=== PATIENT | male | born 1965 | race Caucasian/White ===

== ENCOUNTER 2018-03-09 14:08 | Inpatient (IN) | payer MEDICARE ==
[~2018-03-09] VITALS: Ht 165.1 cm; Wt 78.5 kg
[~2018-03-09 14:08] MED LIST: HALOD100I IM
[2018-03-09] MEDS ORDERED: HALOPERIDOL 5 MG TABLET PO PRN (15:15)
[2018-03-09 15:43] VITALS: BP 158/87
[2018-03-09 16:15] VITALS: BP 160/92
[2018-03-09] MEDS: LORazepam 2 MG TABLET PO PRN (16:56)
[2018-03-09 18:29] VITALS: BP 149/67
[2018-03-09 20:20] VITALS: BP 146/75
[2018-03-10] VITALS (7 sets, daily range): BP systolic 118–157; BP diastolic 70–89
[2018-03-10 07:56] LABS: BASOPHILS % (AUTO) 0.4 % (0.0-2.0); EOSINOPHILS % (AUTO) 0.2 % (1.0-6.0); HEMATOCRIT 46.2 % (41-53); HEMOGLOBIN 15.8 g/dL (13.5-17.5); LYMPHOCYTES # (AUTO) 1.7 K/uL (1.0-4.8); LYMPHOCYTES % (AUTO) 15.5 % (22.0-44.0); MEAN CORPUSCULAR HEMOGLOBIN 30.1 pg (26.0-34.0); MEAN CORPUSCULAR HGB CONC 34.3 G/dL (31.0-37.0); MEAN CORPUSCULAR VOLUME 88 fL (80-100); MONOCYTES # (AUTO) 0.9 K/uL (0.1-1.0); MONOCYTES % (AUTO) 8.2 % (2.0-9.0); NEUTROPHILS # (AUTO) 8.3 K/uL (1.8-7.7); NEUTROPHILS % (AUTO) 75.7 % (40.0-70.0); PLATELET COUNT (AUTO) 273 K/uL (150-450); RED BLOOD CELL COUNT(AUTO) 5.25 MIL/uL (4.50-5.90); RED CELL DISTRIBUTION WIDTH 14.2 % (11.5-14.5)
[2018-03-10 08:25] LABS: HEMOGLOBIN A1C 5.6 % (4.5-6.2)
[2018-03-10] MEDS: LORazepam 2 MG TABLET PO PRN ×2 (08:27→19:34)
[2018-03-10 08:44] LABS: ALANINE AMINOTRANSFERASE 37 U/L (12-78); ALBUMIN 4.6 g/dL (3.4-5.0); ALKALINE PHOSPHATASE 95 U/L (46-116); ANION GAP 7 mmol/L (8-16); ASPARTATE AMINOTRANSFERASE 15 U/L (15-37); BILIRUBIN,TOTAL 0.9 mg/dL (0.1-1.0); CALCIUM, TOTAL 9.2 mg/dL (8.8-10.5); CARBON DIOXIDE 31 mmol/L (22-29); CHLORIDE 106 mmol/L (98-107); CHOL/HDL RATIO 2.6 (4.2-7.3); CHOLESTEROL 145 mg/dL (131-200); CREATININE 0.86 mg/dL (0.60-1.30); FREE T4 (FREE THYROXINE) 1.06 ng/dL (0.76-1.46); GLOMERULAR FILTR. RATE CALC > 60 mL/min (>60); GLUCOSE,RANDOM 106 mg/dL (70-110); HDL CHOLESTEROL 55 mg/dL (40-60); LDL CHOL (CALC.) 82 mg/dL (0-130); POTASSIUM 4.1 mmol/L (3.5-5.1); SODIUM SERUM 144 mmol/L (136-145); THYROID STIMULATING HORMONE 3.23 uIU/mL (0.36-3.74); TRIGLYCERIDES 42 mg/dL (15-150); UREA NITROGEN, BLOOD 16 mg/dL (7-18)
[2018-03-10] MEDS: HALOPERIDOL LACTATE 10 MG/5 ML SOLUTION UDCUP PO SCH ×2 (11:00→20:28)
[2018-03-11] MEDS: ZOLPIDEM TARTRATE 10 MG TABLET PO PRN (01:06)
[2018-03-11 02:12] VITALS: BP 119/77
[2018-03-11 08:04] VITALS: BP 119/81
[2018-03-11] MEDS: HALOPERIDOL LACTATE 10 MG/5 ML SOLUTION UDCUP PO SCH ×2 (08:13→20:34)
[2018-03-11 16:11] VITALS: BP 128/84
[2018-03-12 03:08] VITALS: BP 137/80
[2018-03-12] MEDS: HALOPERIDOL LACTATE 10 MG/5 ML SOLUTION UDCUP PO SCH ×2 (08:14→20:38)
[2018-03-12 08:47] VITALS: BP 120/88
[2018-03-12 16:08] VITALS: BP 122/75
[2018-03-12] MEDS: LORazepam 2 MG TABLET PO PRN (17:40)
[2018-03-13 01:14] VITALS: BP 125/81
[2018-03-13] MEDS: HALOPERIDOL LACTATE 10 MG/5 ML SOLUTION UDCUP PO SCH ×2 (08:21→20:35)
[2018-03-13 08:30] VITALS: BP 125/77
[2018-03-13 16:10] VITALS: BP 125/70
[2018-03-13] MEDS: ZOLPIDEM TARTRATE 10 MG TABLET PO PRN (22:12)
[2018-03-14 02:40] VITALS: BP 132/86
[2018-03-14 08:20] VITALS: BP 146/78
[2018-03-14] MEDS: HALOPERIDOL LACTATE 10 MG/5 ML SOLUTION UDCUP PO SCH ×2 (08:25→20:06)
[2018-03-14 16:08] VITALS: BP 128/75
[2018-03-15 01:45] VITALS: BP 138/80
[2018-03-15] MEDS: HALOPERIDOL LACTATE 10 MG/5 ML SOLUTION UDCUP PO SCH ×2 (08:05→20:32)
[2018-03-15 08:24] VITALS: BP 147/74
[2018-03-15 16:10] VITALS: BP 137/86
[2018-03-16 02:45] VITALS: BP 129/77
[2018-03-16 08:24] VITALS: BP 124/84
[2018-03-16] MEDS: HALOPERIDOL LACTATE 10 MG/5 ML SOLUTION UDCUP PO SCH ×2 (08:34→20:22)
[2018-03-16 16:13] VITALS: BP 140/77
[2018-03-17 00:24] VITALS: BP 139/68
[2018-03-17 08:12] VITALS: BP 123/66
[2018-03-17] MEDS: HALOPERIDOL LACTATE 10 MG/5 ML SOLUTION UDCUP PO SCH ×2 (08:13→20:38)
[2018-03-17 16:05] VITALS: BP 139/77
[2018-03-17] MEDS: ZOLPIDEM TARTRATE 10 MG TABLET PO PRN (21:10)
[2018-03-18 00:17] VITALS: BP 125/63
[2018-03-18] MEDS: HALOPERIDOL LACTATE 10 MG/5 ML SOLUTION UDCUP PO SCH ×2 (08:01→20:43)
[2018-03-18] MEDS: LORazepam 2 MG TABLET PO PRN ×2 (08:29→21:45)
[2018-03-18 08:35] VITALS: BP 123/73
[2018-03-18] MEDS ORDERED: HALOPERIDOL DECANOATE 100 MG/ML VIAL IM ONE (11:15)
[2018-03-18 16:06] VITALS: BP 120/61
[2018-03-19 08:06] VITALS: BP 121/74
[2018-03-19] MEDS: HALOPERIDOL LACTATE 10 MG/5 ML SOLUTION UDCUP PO SCH ×2 (08:06→20:27)
[2018-03-19 16:07] VITALS: BP 118/70
[2018-03-19] MEDS: ZOLPIDEM TARTRATE 10 MG TABLET PO PRN (20:59)
[2018-03-20 02:56] VITALS: BP 121/73
[2018-03-20] MEDS: HALOPERIDOL LACTATE 10 MG/5 ML SOLUTION UDCUP PO SCH ×2 (08:12→20:33)
[2018-03-20 08:16] VITALS: BP 123/74
[2018-03-20 16:12] VITALS: BP 122/77
[2018-03-20] MEDS: ZOLPIDEM TARTRATE 10 MG TABLET PO PRN (21:02)
[2018-03-21 04:19] VITALS: BP 125/81
[2018-03-21] MEDS: HALOPERIDOL LACTATE 10 MG/5 ML SOLUTION UDCUP PO SCH ×2 (08:14→20:31)
[2018-03-21 08:16] VITALS: BP 125/80
[2018-03-21 16:07] VITALS: BP 135/74
[2018-03-21] MEDS: ZOLPIDEM TARTRATE 10 MG TABLET PO PRN (21:12)
[2018-03-22 02:47] VITALS: BP 133/80
[2018-03-22] MEDS: HALOPERIDOL LACTATE 10 MG/5 ML SOLUTION UDCUP PO SCH (08:05)
[2018-03-22 08:33] VITALS: BP 137/89
[2018-03-22] MEDS ORDERED: HALOPERIDOL DECANOATE 100 MG/ML VIAL IM ONE (09:00)
[2018-03-22] MEDS ORDERED: HALO5L PO (09:39)
[2018-04-19] MEDS ORDERED: HALOPERIDOL DECANOATE 100 MG/ML VIAL IM SCH (09:00)
== END 2018-03-22 10:20 | disposition home or self-care (01) | DRG 885 ==
LOC: B2X 15:09
DX: F20.0 Paranoid schizophrenia (principal); R62.50 Unspecified lack of expected normal physiological development in childhood; R03.0 Elevated blood-pressure reading, without diagnosis of hypertension; G47.00 Insomnia, unspecified; Z82.49 Family history of ischemic heart disease and other diseases of the circulatory system; Z83.3 Family history of diabetes mellitus; Z91.19 Patient's noncompliance with other medical treatment and regimen; Z79.899 Other long term (current) drug therapy
CPT/HCPCS: 83036; 84439; 84443; J1631

== ENCOUNTER 2018-07-28 21:58 | Emergency (ER) | payer MEDICARE, MEDICAID, SELFPAY ==
[~2018-07-28] VITALS: Ht 165.1 cm; Wt 77.3 kg
[~2018-07-28 21:58] MED LIST changes: +HALO5L PO
[2018-07-28] MEDS ORDERED: TRAZ-219 PO (22:05)
[2018-07-28 23:10] LABS: BASOPHILS % (AUTO) 0.7 % (0.0-2.0); EOSINOPHILS % (AUTO) 1.7 % (1.0-6.0); HEMATOCRIT 43.9 % (41-53); HEMOGLOBIN 15.2 g/dL (13.5-17.5); LYMPHOCYTES # (AUTO) 2.1 K/uL (1.0-4.8); LYMPHOCYTES % (AUTO) 21.1 % (22.0-44.0); MEAN CORPUSCULAR HEMOGLOBIN 30.7 pg (26.0-34.0); MEAN CORPUSCULAR HGB CONC 34.5 G/dL (31.0-37.0); MEAN CORPUSCULAR VOLUME 89 fL (80-100); MONOCYTES % (AUTO) 9.8 % (2.0-9.0); NEUTROPHILS # (AUTO) 6.6 K/uL (1.8-7.7); NEUTROPHILS % (AUTO) 66.7 % (40.0-70.0); PLATELET COUNT (AUTO) 257 K/uL (150-450); RED BLOOD CELL COUNT(AUTO) 4.93 MIL/uL (4.50-5.90); RED CELL DISTRIBUTION WIDTH 13.7 % (11.5-14.5)
[2018-07-28 23:19] LABS: AMPHET/METH SCREEN,URINE NEGATIVE (NEGATIVE); BARBITURATE SCREEN, URINE NEGATIVE (NEGATIVE); BENZODIAZEPINES SCREEN,URINE NEGATIVE (NEGATIVE); CANNABINOID SCREEN,URINE NEGATIVE (NEGATIVE); COCAINE SCREEN,URINE NEGATIVE (NEGATIVE); METHADONE SCREEN, URINE NEGATIVE (NEGATIVE); OPIATE SCREEN,URINE NEGATIVE (NEGATIVE)
[2018-07-28 23:19] LABS: ANION GAP 6 mmol/L (8-16); CALCIUM, TOTAL 8.9 mg/dL (8.8-10.5); CARBON DIOXIDE 32 mmol/L (22-29); CHLORIDE 102 mmol/L (98-107); CREATININE 0.83 mg/dL (0.60-1.30); GLOMERULAR FILTR. RATE CALC > 60 mL/min (>60); GLUCOSE,RANDOM 120 mg/dL (70-110); POTASSIUM 3.9 mmol/L (3.5-5.1); SODIUM SERUM 140 mmol/L (136-145); UREA NITROGEN, BLOOD 17 mg/dL (7-18)
[2018-07-28 23:20] LABS: PHENCYCLIDINE SCREEN,URINE NEGATIVE (NEGATIVE)
[2018-07-28 23:25] LABS: ALANINE AMINOTRANSFERASE 37 U/L (12-78); ALBUMIN 4.1 g/dL (3.4-5.0); ALKALINE PHOSPHATASE 102 U/L (46-116); ASPARTATE AMINOTRANSFERASE 16 U/L (15-37); BILIRUBIN,TOTAL 0.6 mg/dL (0.1-1.0); TOTAL PROTEIN, SERUM 7.5 g/dL (6.4-8.2)
[2018-07-28] MEDS ORDERED: LORazepam 2 MG TABLET PO ONE (23:45)
[2018-07-29 00:26] VITALS: BP 144/85
== END 2018-07-29 00:28 | disposition home or self-care (01) ==
LOC: EMS 21:59
DX: F20.0 Paranoid schizophrenia (principal); G47.00 Insomnia, unspecified
CPT/HCPCS: 36415; 80053; 80307; 85025; 99284; G0480

== ENCOUNTER 2020-04-15 15:35 | Emergency (ER) | payer MEDICARE, MEDICAID ==
[~2020-04-15] VITALS: Ht 165.1 cm; Wt 90.0 kg
[~2020-04-15 15:35] MED LIST changes: -HALO5L PO; +TRAZ-252 PO
[2020-04-15] MEDS ORDERED: AMLO2.5T96 PO (15:53)
[2020-04-15] MEDS ORDERED: HALO50VI4 IM (15:53)
[2020-04-15] MEDS ORDERED: LISI-660 PO (15:53)
[2020-04-15 16:15] VITALS: BP 147/78
[2020-04-15 16:27] LABS: BASOPHILS % (AUTO) 0.4 % (0.0-2.0); EOSINOPHILS % (AUTO) 1.9 % (1.0-6.0); HEMATOCRIT 42.5 % (41-53); HEMOGLOBIN 14.2 g/dL (13.5-17.5); LYMPHOCYTES # (AUTO) 1.5 K/uL (1.0-4.8); LYMPHOCYTES % (AUTO) 20.4 % (22.0-44.0); MEAN CORPUSCULAR HEMOGLOBIN 29.5 pg (26.0-34.0); MEAN CORPUSCULAR HGB CONC 33.3 G/dL (31.0-37.0); MEAN CORPUSCULAR VOLUME 89 fL (80-100); MONOCYTES # (AUTO) 0.9 K/uL (0.1-1.0); MONOCYTES % (AUTO) 11.8 % (2.0-9.0); NEUTROPHILS # (AUTO) 4.9 K/uL (1.8-7.7); NEUTROPHILS % (AUTO) 65.5 % (40.0-70.0); PLATELET COUNT (AUTO) 243 K/uL (150-450); RED CELL DISTRIBUTION WIDTH 13.3 % (11.5-14.5)
[2020-04-15] MEDS ORDERED: ACETAMINOPHEN 500 MG TABLET PO ONE (16:30)
[2020-04-15] MEDS ORDERED: MAG HYDROX/AL HYDROX/SIMETH ES 30 ML SUSPENSION UDCUP PO ONE (16:30)
[2020-04-15] MEDS ORDERED: LISI-662 PO (16:33)
[2020-04-15] MEDS ORDERED: AMLO-257 PO (16:33)
[2020-04-15] MEDS ORDERED: TRAZ-257 PO (16:33)
[2020-04-15 16:34] LABS: ANION GAP 5 mmol/L (8-16); CALCIUM, TOTAL 9.3 mg/dL (8.8-10.5); CARBON DIOXIDE 28 mmol/L (22-29); CHLORIDE 103 mmol/L (98-107); CREATININE 1.06 mg/dL (0.60-1.30); GLOMERULAR FILTR. RATE CALC > 60 mL/min (>60); GLUCOSE,RANDOM 158 mg/dL (70-110); POTASSIUM 3.6 mmol/L (3.5-5.1); SODIUM SERUM 136 mmol/L (136-145); UREA NITROGEN, BLOOD 12 mg/dL (7-18)
[2020-04-15 16:39] LABS: ALANINE AMINOTRANSFERASE 29 U/L (12-78); ALBUMIN 4.2 g/dL (3.4-5.0); ALKALINE PHOSPHATASE 81 U/L (46-116); ASPARTATE AMINOTRANSFERASE 14 U/L (15-37); BILIRUBIN,TOTAL 0.4 mg/dL (0.1-1.0); LIPASE 134 U/L (73-393); TOTAL PROTEIN, SERUM 7.8 g/dL (6.4-8.2)
== END 2020-04-15 17:00 | disposition home or self-care (01) ==
LOC: EMS 15:35
DX: R00.2 Palpitations (principal); G47.00 Insomnia, unspecified; F20.9 Schizophrenia, unspecified; F41.9 Anxiety disorder, unspecified; I10 Essential (primary) hypertension; Z79.899 Other long term (current) drug therapy
CPT/HCPCS: 36415; 80053; 83690; 84484; 85025; 93005; 99284; G0480

== ENCOUNTER → 2021-01-16 | Outpatient (CLI) | payer MEDICARE, MEDICAID ==
[~2021-01-16] MED LIST changes: +AMLO-257 PO; +HALO50VI4 IM; -HALOD100I IM; +LISI-894 PO; -TRAZ-252 PO; +TRAZ-257 PO
== END | disposition home or self-care (01) ==
LOC: RADPV 09:25
PROVIDERS: ATTEND Internal Medicine Cardiovascular Disease
DX: I07.1 Rheumatic tricuspid insufficiency (principal); I10 Essential (primary) hypertension; I49.9 Cardiac arrhythmia, unspecified
CPT/HCPCS: 93306

== ENCOUNTER 2025-08-25 12:34 | Inpatient (IN) | payer MEDICARE, MEDICAID ==
[~2025-08-25] VITALS: Ht 165.1 cm; Wt 77.1 kg
[~2025-08-25 12:34] MED LIST changes: +HALO50VI29 IM; -HALO50VI4 IM
[2025-08-25 14:25] VITALS: BP 135/66; PULSE 85; RESP 19; TEMP 97.4; O2SAT 98
[2025-08-25 15:06] LABS: GLUCOMETER DEV NAME(LOC) POC.BV; POC SARS-COV2 AG, FIA NEGATIVE (NEGATIVE)
[2025-08-25 20:12] VITALS: BP 126/88; PULSE 89; RESP 18; TEMP 97.7; O2SAT 99
[2025-08-25] MEDS: TraZODone HCL 150 MG TABLET PO SCH (21:32)
[2025-08-26] MEDS ORDERED: MAGNESIUM HYDROXIDE SUSPENSION 30 ML UDCUP PO PRN (08:00)
[2025-08-26] MEDS ORDERED: IBUPROFEN 600 MG TABLET PO PRN (08:00)
[2025-08-26] MEDS ORDERED: DOCUSATE SODIUM 100 MG CAPSULE PO PRN (08:00)
[2025-08-26] MEDS ORDERED: MAG HYDROX/ALUMINUM HYD/SIMETH ES 30 ML SUSPENSION UDCUP PO PRN (08:00)
[2025-08-26] MEDS ORDERED: BENZOCAINE/MENTHOL [CEPACOL] LOZENGE PO PRN (08:00)
[2025-08-26] MEDS ORDERED: ONDANSETRON 4 MG TABLET PO PRN (08:00)
[2025-08-26] MEDS ORDERED: BACITRACIN 28 GM OINTMENT TP PRN (08:00)
[2025-08-26] MEDS ORDERED: OMEPRAZOLE 20 MG CAPSULE PO PRN (08:00)
[2025-08-26] MEDS ORDERED: LOPERAMIDE HCL 2 MG CAPSULE PO PRN (08:00)
[2025-08-26] MEDS ORDERED: PETROLATUM,WHITE 28 GM JELLY TP PRN (08:00)
[2025-08-26] MEDS ORDERED: ALBUTEROL SULFATE HFA 90 MCG/PUFF 8 GM INHALER IH PRN (08:00)
[2025-08-26 08:13] VITALS: BP 121/71; PULSE 79; RESP 18; TEMP 98.1; O2SAT 98
[2025-08-26 09:05] LABS: PLATELET COUNT (AUTO) 263 K/uL (150-450); RED BLOOD CELL COUNT(AUTO) 4.57 MIL/uL (4.50-5.90); RED CELL DISTRIBUTION WIDTH 13.3 % (11.5-14.5); WHITE BLOOD COUNT (AUTO) 5.7 K/uL (4.5-11.0)
[2025-08-26 09:23] LABS: CALCIUM, TOTAL 8.9 mg/dL (8.8-10.5); CREATININE 0.97 mg/dL (0.60-1.30); GLOMERULAR FILTR. RATE CALC > 60 mL/min (>60); GLUCOSE,RANDOM 181 mg/dL (70-110); SODIUM SERUM 136 mmol/L (136-145); UREA NITROGEN, BLOOD 12 mg/dL (7-18)
[2025-08-26 09:25] LABS: ALCOHOL, BLOOD (SERUM) < 3 mg/dL (0-10)
[2025-08-26 09:48] LABS: ASPARTATE AMINOTRANSFERASE 22 U/L (15-37); CHOL/HDL RATIO 2.1 (4.2-7.3); LDL CHOL (CALC.) 58 mg/dL (0-130); TOTAL PROTEIN, SERUM 7.0 g/dL (6.4-8.2)
[2025-08-26 21:44] VITALS: BP 101/61; PULSE 84; RESP 18; TEMP 98; O2SAT 98
[2025-08-27 08:12] VITALS: BP 134/80; PULSE 77; RESP 18; TEMP 98.1; O2SAT 96
[2025-08-27 19:53] VITALS: BP 104/54; PULSE 79; RESP 17; TEMP 98.3; O2SAT 98
[2025-08-28 08:37] VITALS: BP 149/67; PULSE 73; RESP 18; TEMP 98.3; O2SAT 98
[2025-08-28 12:50] LABS: APPEARANCE,URINE CLEAR (CLEAR); GLUCOSE, URINE (UA) NEGATIVE (NEGATIVE); LEUKOCYTE ESTERASE ,URINE NEGATIVE (NEGATIVE); NITRATE,URINE NEGATIVE (NEGATIVE); OCCULT BLOOD,URINE NEGATIVE (NEGATIVE); PH,URINE DRUG SCREEN 6.5 (5.0-8.0); SPECIFIC GRAVITIY, URINE 1.005 (1.003-1.030)
[2025-08-28 13:04] LABS: AMPHET/METH SCREEN,URINE NEGATIVE (NEGATIVE); BARBITURATE SCREEN, URINE NEGATIVE (NEGATIVE); CANNABINOID SCREEN,URINE NEGATIVE (NEGATIVE); COCAINE SCREEN,URINE NEGATIVE (NEGATIVE); METHADONE SCREEN, URINE NEGATIVE (NEGATIVE)
[2025-08-28 13:05] LABS: ALCOHOL, URINE DRUG SCREEN NEGATIVE (NEGATIVE)
[2025-08-28 15:10] VITALS: BP 119/66; PULSE 78; RESP 18; TEMP 98.1; O2SAT 99
[2025-08-28] MEDS: ACETAMINOPHEN 325 MG TABLET PO PRN (15:14)
[2025-08-28 20:12] VITALS: BP 112/62; PULSE 72; RESP 18; TEMP 99; O2SAT 100
[2025-08-28 23:07] LABS: HEPATITIS C AB (EIA) Non Reactive (Non Reactive)
[2025-08-29 05:11] VITALS: BP 124/67; PULSE 74; RESP 18; O2SAT 100
[2025-08-29 08:28] VITALS: BP 134/84; PULSE 82; RESP 18; TEMP 98.3; O2SAT 97
[2025-08-29 20:12] VITALS: BP 109/56; PULSE 81; RESP 17; TEMP 97.6; O2SAT 98
[2025-08-30 08:32] VITALS: BP 115/64; PULSE 90; RESP 18; TEMP 98.4; O2SAT 96
[2025-08-30 20:09] VITALS: BP 104/63; PULSE 81; RESP 18; TEMP 98.1; O2SAT 97
[2025-08-30 21:36] LABS: GLUCOMETER DEV NAME(LOC) BV2X.3; GLUCOSE,POINT OF CARE 109 MG/DL (70-110)
[2025-08-31 08:22] VITALS: BP 137/61; PULSE 81; RESP 17; TEMP 98.5; O2SAT 97
[2025-08-31 20:09] VITALS: BP 133/58; PULSE 72; RESP 18; TEMP 97.9; O2SAT 98
[2025-09-01 08:06] VITALS: BP 114/62; PULSE 62; RESP 18; TEMP 98.4; O2SAT 98
[2025-09-01 20:05] VITALS: BP 121/64; PULSE 69; RESP 17; TEMP 97.7; O2SAT 97
[2025-09-02 05:16] VITALS: BP 130/61; PULSE 66; RESP 18; TEMP 97.8; O2SAT 100
[2025-09-02 08:13] VITALS: BP 136/67; PULSE 66; RESP 18; TEMP 98; O2SAT 98
[2025-09-02] MEDS: INFLUENZA VIRUS VACCINE TVS (6MO+) 2025-26/PF 45 MCG/0.5 ML SYRINGE IM. ONE (08:33)
[2025-09-02 20:21] VITALS: BP 136/66; PULSE 81; RESP 18; TEMP 97.6; O2SAT 100
[2025-09-03 08:21] VITALS: BP 142/69; PULSE 78; RESP 18; TEMP 98.4; O2SAT 97
[2025-09-03 20:24] VITALS: BP 142/71; PULSE 78; RESP 18; TEMP 97.5; O2SAT 97
[2025-09-03 20:29] VITALS: BP 142/71; PULSE 78; RESP 20; TEMP 97.5; O2SAT 97
[2025-09-04 08:21] VITALS: BP 136/65; PULSE 72; RESP 18; TEMP 97.4; O2SAT 100
[2025-09-04] MEDS ORDERED: TRAZ-257 PO (09:52)
[2025-09-04] MEDS ORDERED: HALO10TA21 PO (09:52)
[2025-09-04] MEDS ORDERED: LISI-894 PO (09:52)
[2025-09-04] MEDS ORDERED: AMLO-257 PO (09:52)
[2025-09-04] MEDS ORDERED: QUET200T30 PO (09:52)
== END 2025-09-04 13:11 | disposition home or self-care (01) | DRG 885 ==
LOC: B2X 14:19
PROVIDERS: ADMIT Psychiatry & Neurology Psychiatry; ATTEND Psychiatry & Neurology Psychiatry
PROC: GZHZZZZ Group Psychotherapy (ICD-10-PCS; principal; 2025-08-25)
PROC: GZ58ZZZ Individual Psychotherapy, Cognitive-Behavioral (ICD-10-PCS; 2025-08-25)
PROC: GZ56ZZZ Individual Psychotherapy, Supportive (ICD-10-PCS; 2025-08-25)
DX: F20.0 Paranoid schizophrenia (principal); F29 Unspecified psychosis not due to a substance or known physiological condition; I10 Essential (primary) hypertension; F41.9 Anxiety disorder, unspecified; G47.00 Insomnia, unspecified; Z20.822 Contact with and (suspected) exposure to COVID-19; K59.00 Constipation, unspecified; Z79.899 Other long term (current) drug therapy
CPT/HCPCS: 80053; 80061; 80307; 81003; 82962; 83036; 84436; 84439; 85025; 86803; 87340; G0480; J1631